=== PATIENT | male | born 1940 | race Caucasian/White ===

== ENCOUNTER 2017-01-11 13:55 | Emergency (ER) | payer OTHER ==
[~2017-01-11] VITALS: Ht 185.4 cm; Wt 95.3 kg
[~2017-01-11 13:55] MED LIST: ASPIRIN81 M1 PO; CELEBREX200 MG PO; CHOLESTEROL MAN1 TAB; COLACE100 MG PO; DAYPRO600 M1 PO; DULCOLAX5 MG PO; FISH OIL 500MG500 MG PO; LOVENOX30 MG/0.3 SC; NKHM; PERCOCET 325 MG1 TA3 PO; PROTONIX40 MG PO; ROBAXIN750 MG PO; VITAMIN D2000 IU PO; VITAMIN E100 I1 PO
[2017-01-11 14:55] LABS: BASO % 0.2 % (0.0-1.0); EOS % 0.2 % (1.0-4.0); HEMATOCRIT 47.1 % (42.0-52.0); HEMOGLOBIN 16.1 g/dl (14.0-18.0); IG # 0.1 10*3/uL (0.0-0.1); LYMPH # 1.3 10*3/uL (1.3-4.4); LYMPH % 8.4 % (27.0-41.0); MEAN CORPUSCULAR HGB 30.1 pg (27.0-31.0); MEAN CORPUSCULAR HGB CONC 34.2 g/dl (33.0-37.0); MONO # 1.3 10*3/uL (0.1-1.0); MONO % 8.6 % (3.0-9.0); NEUT # 12.6 10*3/uL (2.3-7.9); NEUT % 82.1 % (47.0-73.0); PLATELET COUNT AUTOMATED 232 10*3/uL (130-400); RED BLOOD COUNT 5.35 10*6/uL (4.50-5.90); RED CELL DISTRI WIDTH 13.1 % (0-14.5); WHITE BLOOD COUNT 15.4 10*3/uL (4.8-10.8)
[2017-01-11 15:02] LABS: PROTHROMBIN TIME 10.5 SECONDS (9.0-12.4)
[2017-01-11 15:11] LABS: ALBUMIN 4.3 gm/dl (3.1-4.5); ALKALINE PHOSPHATASE 132 U/L (45-117); BILIRUBIN, TOTAL 0.6 mg/dl (0.2-1.0); BUN 18 mg/dl (7-24); CARBON DIOXIDE 23 mmol/L (21-32); CHLORIDE 107 mmol/L (98-107); EST GLOM FILT AFRICAN AMERICAN > 60 ml/min; GLUCOSE 129 mg/dL (65-99); MAGNESIUM 2.3 mg/dL (1.5-2.1); POTASSIUM 4.1 mmol/L (3.5-5.1); SGOT/AST 24 IU/L (3-35); SGPT/ALT 35 U/L (12-78); SODIUM 143 mmol/L (136-145); TOTAL PROTEIN 8.1 gm/dL (6.4-8.2)
[2017-01-11 15:12] LABS: TROPONIN I < 0.015 ng/ml (<0.045)
== END 2017-01-11 15:17 | disposition left against medical advice (07) ==
LOC: ED 13:55
PROVIDERS: Nurse Practitioner Family
DX: R20.2 Paresthesia of skin (principal); F17.200 Nicotine dependence, unspecified, uncomplicated; Z88.0 Allergy status to penicillin; Z79.899 Other long term (current) drug therapy; Z79.82 Long term (current) use of aspirin

== ENCOUNTER → 2019-02-26 | Outpatient (CLI) | payer OTHER | END | disposition home or self-care (01) | LOC: CT 15:00 | DX: R51 Headache (principal); R41.81 Age-related cognitive decline; R25.0 Abnormal head movements ==

== ENCOUNTER → 2025-03-19 | Outpatient (CLI) | payer MEDICARE | END | disposition home or self-care (01) | LOC: MRI 09:00 | PROVIDERS: ATTEND Physician Assistant | DX: M47.812 Spondylosis without myelopathy or radiculopathy, cervical region (principal); M48.02 Spinal stenosis, cervical region; M54.2 Cervicalgia; G89.29 Other chronic pain; R51.9 Headache, unspecified ==

== ENCOUNTER 2025-06-12 09:36 | Emergency (ER) | payer OTHER ==
[~2025-06-12] VITALS: Ht 182.8 cm; Wt 80.7 kg
== END 2025-06-12 11:56 | disposition home or self-care (01) ==
LOC: ED 09:36
DX: M25.511 Pain in right shoulder (principal); E78.00 Pure hypercholesterolemia, unspecified; F17.210 Nicotine dependence, cigarettes, uncomplicated; Z88.0 Allergy status to penicillin